=== PATIENT | female | born 1950 | race Caucasian/White ===

== ENCOUNTER 2019-02-18 07:52 | Day surgery (SDC) | payer MEDICARE, OTHER, BC ==
[~2019-02-18] VITALS: Ht 171.4 cm; Wt 84.2 kg
[2019-02-18] MEDS ORDERED: SODIUM CHLORIDE 0.9% 1,000 ML IV SCH (08:29)
[2019-02-18 08:59] VITALS: BP 114/74
[2019-02-18] MEDS ORDERED: LIDOCAINE-MPF 1%, 5ML ONE (09:18)
[2019-02-18 09:27] LABS: BASOPHILS # (AUTO) 0.04 x10^3/uL (0-0.1); BASOPHILS % (AUTO) 1 % (0-1); EOSINOPHILS # (AUTO) 0.31 x10^3/uL (0-0.4); EOSINOPHILS % (AUTO) 7 % (1-7); LYMPHOCYTES # (AUTO) 1.89 x10^3/uL (1-3.4); LYMPHOCYTES % (AUTO) 43 % (22-44); MD NO; MEAN CORPUSCULAR HEMOGLOBIN 32.1 pg (27.0-34.8); MEAN CORPUSCULAR HGB CONC 33.8 g/dL (32.4-35.8); MEAN CORPUSCULAR VOLUME 94.9 fL (80-100); MEAN PLATELET VOLUME 8.2 fL (7.4-10.4); MONOCYTES # (AUTO) 0.53 x10^3/uL (0.2-0.8); MONOCYTES % (AUTO) 12 % (2-9); NEUTROPHILS # (AUTO) 1.64 x10^3/uL (1.8-6.8); NEUTROPHILS % (AUTO) 37 % (42-75); PLATELET COUNT 180 x10^3/uL (130-400); RED BLOOD COUNT 4.02 x10^6/uL (3.82-5.3); RED CELL DISTRIBUTION WIDTH 14.1 % (9.6-15.2)
[2019-02-18] MEDS ORDERED: DOXY100T PO (09:43)
[2019-02-18] MEDS ORDERED: ATOR10TA9 PO (09:43)
[2019-02-18] MEDS ORDERED: LISD40CA3 PO (09:43)
[2019-02-18] MEDS ORDERED: THYR60TA PO (09:43)
[2019-02-18] MEDS ORDERED: LIPA1CAP61 PO (09:43)
[2019-02-18] MEDS ORDERED: SOMA6CAR INJ (09:43)
[2019-02-18] MEDS ORDERED: ONDA4TAB13 SL (09:43)
[2019-02-18] MEDS ORDERED: ZOLP5TAB6 PO (09:43)
[2019-02-18] MEDS ORDERED: DESV100T PO (09:43)
[2019-02-18] MEDS ORDERED: HYDR-3307 PO (09:43)
[2019-02-18] MEDS ORDERED: ESTR1PAT10 TD (09:43)
[2019-02-18] MEDS ORDERED: TELM40TA PO (09:43)
[2019-02-18] MEDS ORDERED: HYDR200T72 PO (09:43)
[2019-02-18] MEDS ORDERED: PRED2.5T PO (09:43)
[2019-02-18] MEDS ORDERED: ASPI325T17 PO (09:43)
[2019-02-18] MEDS ORDERED: FEXO180T15 PO (09:43)
[2019-02-18] MEDS ORDERED: FLUT1DIS3 INH (09:43)
[2019-02-18] MEDS ORDERED: FLUMAZENIL 0.1 MG/1 ML, 5ML ONE (09:55)
[2019-02-18] MEDS ORDERED: FENTANYL PF 100 MCG/2ML ONE (09:55)
[2019-02-18] MEDS ORDERED: MIDAZOLAM 1 MG/ML, 5ML ONE ×2 (09:55→10:32)
[2019-02-18] MEDS ORDERED: NALOXONE 1 MG/ML, 2ML ONE (09:56)
== END 2019-02-18 11:48 | disposition home or self-care (01) ==
LOC: OUT 07:52 → EDSTATUS 09:30 → OUT 11:48
PROVIDERS: ATTEND Internal Medicine
DX: D70.8 Other neutropenia (principal); J45.909 Unspecified asthma, uncomplicated; I10 Essential (primary) hypertension; Z88.0 Allergy status to penicillin; Z88.8 Allergy status to other drugs, medicaments and biological substances; Z91.040 Latex allergy status; Z79.899 Other long term (current) drug therapy; Z79.01 Long term (current) use of anticoagulants
CPT/HCPCS: 36415; 38222; 77012; 85025; 85060; 85097; 88237; 88264; 88280; 88305; 88311; 88341; 88342; 99156; 99157; J2250; J3010; J7030; 88313; 88360; J2310